=== PATIENT | male | born 1950 | race Caucasian/White ===

== ENCOUNTER 2017-03-22 16:02 | Inpatient (IN) | payer MEDICARE ==
[~2017-03-22] VITALS: Ht 167.6 cm; Wt 151.1 kg
--- NOTE | ~2017-03-22 | CON ---
[place], [place] REPORT OF CONSULTATION NAME: ION ALMANZAR UNIT #: [id number] ROOM: 506 DOCTOR: ROBYN WILKINS MD BIRTHDATE: [birth year] DOS: 03/23/2017 REQUESTING PHYSICIAN: Dr. Dyer. INDICATION: Chest pain. ASSESSMENT: 1. Initial presentation with significant vomiting. 2. Developing chest pain, substernal, dull, aching. It can reach 8/10. No relief with sublingual nitroglycerin. 3. Improved pain with Percocet and Toradol. 4. History of coronary artery disease. Apparently, the patient is status post 8-10 and 9 stents placement. 5. Recent record check, patient had a stent in the RCA with Dr. Magallanes in March of last year. 6. Stress test was negative for ischemia in April of last year. 7. Morbid obesity. 8. Hypertension. 9. Hyperlipidemia. 10. Previous history of heavy tobacco abuse. 11. Early family history of heart disease. PLAN: 1. Cycle cardiac enzymes. 2. Proceed with a walking stress test. 3. Resume Imdur and Brilinta. 4. The patient's heart rate does not tolerate adding beta giovanni at this stage. 5. Consider Ranexa for continued complaint of chest pain. 6. Cardiac catheterization for continued chest pain that is not relieved with medicine. 7. Early followup as an outpatient in our clinic in [place] within 1-2 weeks. 8. Call for any change in symptoms. HISTORY OF PRESENT ILLNESS: The patient is a 67-year-old gentleman well known to our group with Dr. Magallanes. The patient underwent a cardiac catheterization in March of last year with stent placement in RCA. No details available to me at this time. The patient came back with chest pain after that and repeat stress test was negative for ischemia and the patient was treated medically. The patient ran out of medicine due to financial reasons and stopped his Brilinta and his beta giovanni along with Imdur. Two days ago, the patient started having significant vomiting without any prodromal symptoms. No fever, no chills, no night sweats. No abdominal pain, no diarrhea. Following day, the patient started having chest pain that was thought to be due to constant retching. The pain did reach almost 8/10. It was constant until the patient presented to the Emergency Room. Nitroglycerin did not even relieve the pain, but subsequently Percocet did help. The patient did have recurrence of the chest pain after a few hours. Toradol also did help in controlling the pain. Never had any symptomatic palpitation or any associated dizziness, lightheadedness, or near [place], [place] REPORT OF CONSULTATION NAME: ION ALMANZAR UNIT #: [id number] ROOM: [facility] DOCTOR: ROBYN WILKINS MD BIRTHDATE: [birth year] syncope. The patient is still able to go grocery shopping, but no active exercise program. No PND, no orthopnea, stable lower extremity edema. The patient still goes grocery shopping. He has moderately decreased functional capacity due to his body habitus. No fever, no chills, no night sweats. Maintained relatively stable weight. He sleeps on 2 pillows with no reported loud snoring. Never had any symptomatic palpitation or associated dizziness, lightheadedness or near syncope. PAST MEDICAL HISTORY: As detailed in my assessment. SOCIAL HISTORY: The patient denies any current tobacco, alcohol or illicit drug abuse. The patient smoked before that 2-1/2 packs. FAMILY HISTORY: There is significant early family history of heart disease. The patient's father at age 52 of a massive myocardial infarction. One of his brothers also has early heart problems at age 72. CURRENT MEDICATIONS: Vitamin D, aspirin, Lovenox, Protonix, Toradol, Nitrostat, Restoril, Zofran, bisacodyl, and aspirin 324. ALLERGIES: THE PATIENT IS ALLERGIC TO PENICILLIN, CEPHALOSPORINS, IODINE, AND LIDOCAINE. REVIEW OF SYSTEMS: Currently, the patient denies any headache, diplopia or blurry vision. No fever, no chills, no night sweats. No abdominal pain, no bright blood per rectum, no tarry stools. Admits to joint pain and muscular pain. Admits to occasional anxiety, but no depression. No polyuria, no polydipsia. No skin rash. Review of all other systems has been negative. PHYSICAL EXAMINATION: GENERAL: The patient is alert, oriented x 3, quite pleasant. VITAL SIGNS: Blood pressure 150/80, heart rate 68, respiratory rate of 16, temperature 97.8. HEENT: Extraocular muscles intact. Pupils equal, round, and reactive to light. Conjunctivae, no pallor. Throat, no petechiae. NECK: Good carotid upstroke. Unable to appreciate any bruit, no lymphadenopathy, no thyromegaly. HEART: S1, S2 with a significant holosystolic murmur in the left upper sternal border. No rub or sternal heave. Distant heart sounds. CHEST AND BACK: No deformities. LUNGS: Significant decreased air movement, but no yeison wheezing or rales. ABDOMEN: Morbidly obese, soft, nontender. Present bowel sounds. Unable to appreciate any masses or bruit. This is a very limited exam. EXTREMITIES: Lower extremities, significant edema and lymphedema 2 to 3/4 bilateral with inability to palpate distal pulses. NEUROLOGIC: Grossly nonfocal. SKIN: No significant rash. LABORATORY DATA: White count 5.7, hemoglobin is 12.9. Potassium was 3.7, GFR [place], [place] REPORT OF CONSULTATION NAME: ION ALMANZAR UNIT #: [id number] ROOM: [facility] DOCTOR: ROBYN WILKINS MD BIRTHDATE: [birth year] more than 60. Hemoglobin A1c 5.9. Vitamin D 29. Normal thyroid function tests. ROBYN WILKINS MD CM:CONSTR:REPORT OF CONSULTATION [id number] 03/24/17 0054 interface
--- NOTE | ~2017-03-22 | ST ---
[place], [place] EXERCISE STRESS TEST REPORT NAME: ION ALMANZAR UNIT #: [id number] ROOM: 506 DOCTOR: ROBYN WILKINS MD BIRTHDATE: [birth year] DOS: REQUESTING PHYSICIAN: Dr. Katelin Dyer. INDICATION: Chest pain. PROCEDURE: The patient was exercised on a treadmill using Thomas protocol, the patient exercised for 2 minutes and 11 seconds, reaching 86% of his maximum predicted heart rate. Maximum workload was 3 METS. Test was terminated due to severe shortness of breath and chest burning, 05/20. BLOOD PRESSURE RESPONSE: Resting blood pressure 152/78 with ending blood pressure 190/70. ELECTROCARDIOGRAM INTERPRETATION: The resting electrocardiogram showing normal sinus rhythm, heart rate of 84. There is criteria for right bundle branch block and left atrial enlargement. At the peak of the stress test, there was no evidence of any significant ST or T-wave changes suggestive of myocardial ischemia. Frequent unifocal PVCs that were asymptomatic were noticed. SUMMARY: 1. Adequate stress test with severely impaired functional capacity. 2. Possible treadmill stress test for stress induced myocardial ischemia by symptomatology. 3. Hypertensive at rest with normal blood pressure response to exercise. 4. No arrhythmias were noted except for occasional unifocal PVCs that were asymptomatic. 5. No Myoview results were done. RECOMMENDATIONS: 1. Restart aspirin and Plavix. 2. Initiate Lopressor 25 mg. 3. Add Imdur 60 mg. 4. Ranexa 500 mg 1 tablet p.o. b.i.d. 5. Repeat stress test with nuclear as an outpatient. ROBYN WILKINS MD CM:STRESS:EXERCISE STRESS TEST REPORT [id number] ROBYN WILKINS MD
[~2017-03-22 16:02] MED LIST: ANTIVERT25 MG PO; ASPIR-TRIN325 MG PO; ASPIRIN81 M1; ASPIRIN81 M1 PO; ATIVAN1 MG PO; ATORVASTATIN CA80 M1 PO; CIPRO500 MG PO; CIPROFLOXACIN500 MG PO; Duragesic 50 M50 MCG INTRADERM; ENOXAPARIN150 MG/1 M SC; FLEXERIL10 MG PO; FLOMAX0.4 MG PO; HYDROCODONE BIT1 T11 PO; IMDUR30 MG PO; Imdur SA60 MG PO; LISINOPRIL10 MG PO; LOPRESSOR50 MG PO; MEDROL DOSEPAK4 MG PO; NORFLEX100 MG PO; PERCOCET 325 MG1 TA2 PO; PERCOCET 325 MG1 TA7 PO; PREVACID30 M1 PO; PROTONIX40 MG PO; PROZAC40 M1 PO; PROZAC40 MG PO; PYRIDIUM200 MG PO; TAMSULOSIN HYD0.4 MG PO; THE MEDICINE S400 IU PO; VICODIN 5/500 505 MG PO; VITAMIN D400 IU PO; ZOFRAN ODT4 MG SL; ZOFRAN4 MG PO; Zofran4 MG PO
[2017-03-22 16:36] LABS: BASO % 0.5 % (0.0-1.0); EOS # 0.1 10*3/uL (0.0-0.4); EOS % 3.2 % (1.0-4.0); HEMATOCRIT 40.2 % (42.0-52.0); HEMOGLOBIN 13.4 g/dl (14.0-18.0); LYMPH # 1.4 10*3/uL (1.3-4.4); LYMPH % 34.2 % (27.0-41.0); MEAN CELL VOLUME 91.8 fl (80.0-94.0); MEAN CORPUSCULAR HGB 30.6 pg (27.0-31.0); MEAN CORPUSCULAR HGB CONC 33.3 g/dl (33.0-37.0); MEAN PLATELET VOLUME 10.2 fl (9.6-12.3); MONO # 0.7 10*3/uL (0.1-1.0); MONO % 15.8 % (3.0-9.0); NEUT # 1.9 10*3/uL (2.3-7.9); NEUT % 45.3 % (47.0-73.0); PLATELET COUNT AUTOMATED 176 10*3/uL (130-400); RED BLOOD COUNT 4.38 10*6/uL (4.50-5.90); RED CELL DISTRI WIDTH 12.6 % (0-14.5); WHITE BLOOD COUNT 4.1 10*3/uL (4.8-10.8)
[2017-03-22 16:46] LABS: INTERNATIONAL NORM RATIO 0.9 (2.0-3.5)
[2017-03-22 16:54] LABS: ALBUMIN 3.5 gm/dl (3.1-4.5); ALKALINE PHOSPHATASE 70 U/L (45-117); BILIRUBIN, TOTAL 0.6 mg/dl (0.2-1.0); BUN 17 mg/dl (7-24); CARBON DIOXIDE 28 mmol/L (21-32); CHLORIDE 107 mmol/L (98-107); EST GLOM FILT AFRICAN AMERICAN > 60 ml/min; GLUCOSE 104 mg/dL (65-99); POTASSIUM 3.9 mmol/L (3.5-5.1); SGOT/AST 28 IU/L (3-35); SGPT/ALT 36 U/L (12-78); SODIUM 146 mmol/L (136-145); TOTAL PROTEIN 6.8 gm/dL (6.4-8.2); TROPONIN I < 0.015 ng/ml (<0.045)
[2017-03-22 17:51] VITALS: BP 140/69
[2017-03-22 18:46] LABS: CKMB 0.6 ng/ml (0.5-3.6)
[2017-03-22 18:55] VITALS: BP 161/82
[2017-03-22 19:24] VITALS: BP 133/62
[2017-03-22 19:30] VITALS: BP 134/68
[2017-03-22 21:20] VITALS: BP 145/77
[2017-03-22 22:01] LABS: CKMB 0.6 ng/ml (0.5-3.6)
[2017-03-22] MEDS ORDERED: ASPIRIN CHEWABL81 MG PO (23:21)
[2017-03-23] VITALS: BP 149/78
[2017-03-23 00:54] LABS: CPK 55 U/L (39-308)
[2017-03-23 00:55] LABS: CKMB < 0.5 ng/ml (0.5-3.6)
[2017-03-23 06:44] LABS: BASO % 0.5 % (0.0-1.0); EOS # 0.2 10*3/uL (0.0-0.4); EOS % 2.7 % (1.0-4.0); HEMATOCRIT 38.9 % (42.0-52.0); HEMOGLOBIN 12.9 g/dl (14.0-18.0); LYMPH # 1.4 10*3/uL (1.3-4.4); LYMPH % 25.1 % (27.0-41.0); MEAN CELL VOLUME 93.1 fl (80.0-94.0); MEAN CORPUSCULAR HGB 30.9 pg (27.0-31.0); MEAN CORPUSCULAR HGB CONC 33.2 g/dl (33.0-37.0); MEAN PLATELET VOLUME 10.4 fl (9.6-12.3); MONO # 0.7 10*3/uL (0.1-1.0); MONO % 11.9 % (3.0-9.0); NEUT # 3.4 10*3/uL (2.3-7.9); NEUT % 59.3 % (47.0-73.0); PLATELET COUNT AUTOMATED 152 10*3/uL (130-400); RED BLOOD COUNT 4.18 10*6/uL (4.50-5.90); RED CELL DISTRI WIDTH 12.5 % (0-14.5); WHITE BLOOD COUNT 5.7 10*3/uL (4.8-10.8)
[2017-03-23 07:12] LABS: BUN 17 mg/dl (7-24); CARBON DIOXIDE 28 mmol/L (21-32); CHLORIDE 107 mmol/L (98-107); CHOLESTEROL 187 mg/dL (<200); EST GLOM FILT AFRICAN AMERICAN > 60 ml/min; FREE T4 1.04 ng/dl (0.76-1.46); GLUCOSE 88 mg/dL (65-99); HDL CHOLESTEROL 42 mg/dl (40-60); LDL CHOLESTEROL 118 mg/dL (9-159); PHOSPHOROUS 3.5 mg/dL (2.5-4.9); POTASSIUM 3.7 mmol/L (3.5-5.1); SODIUM 142 mmol/L (136-145); TRIGLYCERIDES 137 mg/dl (<150); VLDL CHOLESTEROL 27 mg/dL (6-40)
[2017-03-23 07:13] LABS: HEMOGLOBIN A1c 5.9 % (4.8-5.6)
[2017-03-23 07:32] LABS: FOLIC ACID 9.43 ng/mL (>5.38); VITAMIN D, 25-HYDROXY 29.3 ng/mL (30-100)
[2017-03-23 08:00] VITALS: BP 150/80
[2017-03-23 12:00] VITALS: BP 152/78
[2017-03-23] MEDS ORDERED: D-1000 185 MG-11 TAB PO (13:57)
[2017-03-23] MEDS ORDERED: RANEXA500 M1 PO (13:57)
[2017-03-23] MEDS ORDERED: LOPRESSOR25 MG PO (13:57)
[2017-03-23] MEDS ORDERED: IMDUR SA60 M1 PO (13:57)
[2017-03-23] MEDS ORDERED: CLOPIDOGREL75 MG PO (13:57)
[2017-03-23] MEDS ORDERED: OMEPRAZOLE20 M2 PO (13:57)
[2017-03-23] MEDS ORDERED: ASPIRIN CHEWABL81 MG PO (13:57)
[2017-03-23 16:00] VITALS: BP 154/65
== END 2017-03-23 17:56 | disposition home or self-care (01) | DRG 206 ==
LOC: ED 16:02 → EDHOLD 17:47 → 5E 17:47
PROVIDERS: Emergency Medicine; Student in an Organized Health Care Education/Training Program
PROC: 4A12XM4 Monitoring of Cardiac Stress, External Approach (ICD-10-PCS; principal; 2017-03-22)
DX: M94.0 Chondrocostal junction syndrome [Tietze] (principal); E87.0 Hyperosmolality and hypernatremia; Z68.43 Body mass index [BMI] 50.0-59.9, adult; J44.9 Chronic obstructive pulmonary disease, unspecified; K21.9 Gastro-esophageal reflux disease without esophagitis; I10 Essential (primary) hypertension; E66.01 Morbid (severe) obesity due to excess calories; R19.7 Diarrhea, unspecified; R11.2 Nausea with vomiting, unspecified; D72.819 Decreased white blood cell count, unspecified; D64.9 Anemia, unspecified; E55.9 Vitamin D deficiency, unspecified; Z53.29 Procedure and treatment not carried out because of patient's decision for other reasons; E78.5 Hyperlipidemia, unspecified; Z87.440 Personal history of urinary (tract) infections; Z85.89 Personal history of malignant neoplasm of other organs and systems; Z95.818 Presence of other cardiac implants and grafts; Z90.02 Acquired absence of larynx; I25.2 Old myocardial infarction; Z91.041 Radiographic dye allergy status; Z88.0 Allergy status to penicillin; Z88.1 Allergy status to other antibiotic agents; Z88.4 Allergy status to anesthetic agent; Z88.8 Allergy status to other drugs, medicaments and biological substances; Z91.09 Other allergy status, other than to drugs and biological substances; Z87.891 Personal history of nicotine dependence; Z83.6 Family history of other diseases of the respiratory system; Z82.49 Family history of ischemic heart disease and other diseases of the circulatory system; Z79.82 Long term (current) use of aspirin; Z79.899 Other long term (current) drug therapy

== ENCOUNTER → 2017-03-24 | Outpatient (CLI) | payer MEDICARE ==
[~2017-03-24] MED LIST changes: +ASPIRIN CHEWABL81 MG PO; +CLOPIDOGREL75 MG PO; +D-1000 185 MG-11 TAB PO; +IMDUR SA60 M1 PO; +LOPRESSOR25 MG PO; +OMEPRAZOLE20 M2 PO; +RANEXA500 M1 PO
--- NOTE | ~2017-03-24 | ST ---
[place], [place] EXERCISE STRESS TEST REPORT NAME: ION ALMANZAR UNIT #: [id number] ROOM: DOCTOR: ROBYN WILKINS MD BIRTHDATE: [birth year] DOS: INDICATION: Chest pain. PROCEDURE: The patient was brought into the stress lab. The procedure was explained with risks, benefits, and alternatives. Lexiscan was injected. BLOOD PRESSURE RESPONSE: Resting blood pressure 150/78 with ending blood pressure 140/76. The patient tolerated the procedure well. ELECTROCARDIOGRAM INTERPRETATION: Resting electrocardiogram showing normal sinus rhythm, heart rate of 61 with right bundle-branch block. Following the injection, there was no evidence of any significant ST or T-wave changes suggestive of myocardial ischemia. No arrhythmias were noted. SUMMARY: 1. Adequate Lexiscan stress test. 2. Negative Lexiscan stress test for stress induced myocardial ischemia. 3. No arrhythmias were noted. 4. Nuclear images will be reported separately. ROBYN WILKINS MD CM:STRESS:EXERCISE STRESS TEST REPORT [id number] ROBYN WILKINS MD
== END | disposition home or self-care (01) ==
LOC: CARD 02:23
DX: R07.89 Other chest pain (principal)

== ENCOUNTER 2017-09-27 14:42 | Inpatient (IN) | payer MEDICARE, OTHER ==
[~2017-09-27] VITALS: Ht 167.6 cm; Wt 163.7 kg
[2017-09-27 14:45] VITALS: BP 166/139
--- NOTE | 2017-09-27 15:10 | NUR ---
PT TELLS ME THAT HE TAKES NO MEDS AT HOME AT THIS TIME HE CAN NOT AFFORD THEM
[2017-09-27 15:13] LABS: BASO % 0.5 % (0.0-1.0); EOS # 0.1 10*3/uL (0.0-0.4); EOS % 2.1 % (1.0-4.0); HEMATOCRIT 39.2 % (42.0-52.0); HEMOGLOBIN 13.2 g/dl (14.0-18.0); LYMPH # 1.7 10*3/uL (1.3-4.4); LYMPH % 27.8 % (27.0-41.0); MEAN CELL VOLUME 90.3 fl (80.0-94.0); MEAN CORPUSCULAR HGB 30.4 pg (27.0-31.0); MEAN CORPUSCULAR HGB CONC 33.7 g/dl (33.0-37.0); MEAN PLATELET VOLUME 10.3 fl (9.6-12.3); MONO # 0.8 10*3/uL (0.1-1.0); MONO % 13.6 % (3.0-9.0); NEUT # 3.4 10*3/uL (2.3-7.9); NEUT % 55.2 % (47.0-73.0); PLATELET COUNT AUTOMATED 178 10*3/uL (130-400); RED BLOOD COUNT 4.34 10*6/uL (4.50-5.90); RED CELL DISTRI WIDTH 12.7 % (0-14.5); WHITE BLOOD COUNT 6.1 10*3/uL (4.8-10.8)
[2017-09-27 15:22] LABS: ACT PARTIAL THROMBO TIME 25.2 SECONDS (20.8-31.5); INTERNATIONAL NORM RATIO 0.9 (2.0-3.5)
[2017-09-27 15:30] LABS: ALBUMIN 3.6 gm/dl (3.1-4.5); ALKALINE PHOSPHATASE 94 U/L (45-117); BUN 16 mg/dl (7-24); CHLORIDE 104 mmol/L (98-107); POTASSIUM 3.9 mmol/L (3.5-5.1); SGOT/AST 36 IU/L (3-35); SGPT/ALT 48 U/L (12-78); SODIUM 139 mmol/L (136-145); TOTAL PROTEIN 7.4 gm/dL (6.4-8.2)
[2017-09-27 15:32] LABS: TROPONIN I < 0.015 ng/ml (<0.045)
[2017-09-27 15:40] VITALS: BP 160/88
[2017-09-27 16:34] VITALS: BP 151/84
--- NOTE | 2017-09-27 16:45 | NUR ---
PT AMBULATORY FROM BED IN WICK TO ROOM WITHOUT DIFFICULTY. BELONGINGS SENT WITH PT. ALERT, AND ORIENTED.
[2017-09-27 17:04] VITALS: BP 161/82
--- NOTE | 2017-09-27 17:10 | NUR ---
DR. BATISTA ANSWERING SERVICE NOTIFIED OF CONSULT.
--- NOTE | 2017-09-27 18:00 | NUR ---
SL NITRO GIVEN X3 DOSES WITH NO RELIEF. DR. ARMAS NOTIFIED. NEW ORDER RECIEVED.
[2017-09-27] MEDS ORDERED: LOPRESSOR25 MG PO (18:09)
[2017-09-27] MEDS ORDERED: IMDUR SA60 M1 PO (18:10)
[2017-09-27] MEDS ORDERED: PLAVIX75 M1 PO (18:12)
[2017-09-27] MEDS ORDERED: PRILOSEC20 M1 PO (18:14)
[2017-09-27] MEDS ORDERED: VITAMIN D-32000 UNIT PO (18:14)
[2017-09-27] MEDS ORDERED: ASPIRIN CHEWABL81 MG PO (18:14)
[2017-09-27] MEDS ORDERED: PROZAC20 MG PO (18:19)
--- NOTE | 2017-09-27 18:52 | NUR ---
PT MEDICATED WITH MOPRHINE PER ORDER FOR CHEST PAIN RATED 8/10. WILL MONITIOR
[2017-09-27 20:00] VITALS: BP 138/58
--- NOTE | 2017-09-27 20:00 | NUR ---
ASSUMED CARE OF PATIENT. ASSESSMENT COMPLETE. RESTING IN BED. CALL LIGHT IN REACH. WILL CONTINUE TO MONITOR.
--- NOTE | 2017-09-27 21:05 | NUR ---
PT C/O CHILLS. SHIVERING. PT HAS 7 BLANKETS AND TEMP IN ROOM IS ALL THE WAY UP. PT REQUESTING HEATING PAD. KPAD ORDERED PER DR JOHNSON. PT TEMP 99.1. PRN TYLENOL GIVEN. WILL MONITOR PT CLOSELY.
--- NOTE | 2017-09-27 21:12 | NUR ---
MEDICATED WITH PRN MORPHINE FOR C/O LT CHEST PAIN RADIATING TO NECK. RATES 06/20.
[2017-09-28] VITALS: BP 118/52
--- NOTE | 2017-09-28 00:47 | NUR ---
DR JOHNSON ON FLOOR. MADE HIM AWARE THAT PATIENT HAS BEEN DYSPNIC AND WAS PLACED ON 3L NC. ALSO MADE HIM AWARE THAT PT HAS TEMP AND C/O CHILLS AFTER TYLENOL ADMINISTRATION. NO ORDERS RECEIVED
--- NOTE | 2017-09-28 02:00 | NUR ---
SLEEPING. RESP EASY AND NONLABORED AT THIS TIME. O2 INTACT. CM INTACT. CALL LIGHT IN REACH. WILL CONTINUE TO MONITOR.
--- NOTE | 2017-09-28 05:28 | NUR ---
MEDICATED WITH PRN MORPHINE FOR C/O LT CHEST PAIN AND HEADACHE. RATES 03/20.
[2017-09-28 06:44] LABS: BASO # 0.1 10*3/uL (0.0-0.1); BASO % 0.5 % (0.0-1.0); EOS # 0.2 10*3/uL (0.0-0.4); EOS % 1.5 % (1.0-4.0); HEMATOCRIT 38.1 % (42.0-52.0); LYMPH # 1.1 10*3/uL (1.3-4.4); LYMPH % 8.6 % (27.0-41.0); MEAN CELL VOLUME 90.7 fl (80.0-94.0); MEAN CORPUSCULAR HGB CONC 34.1 g/dl (33.0-37.0); MEAN PLATELET VOLUME 11.3 fl (9.6-12.3); MONO % 7.6 % (3.0-9.0); NEUT # 10.4 10*3/uL (2.3-7.9); NEUT % 81.4 % (47.0-73.0); PLATELET COUNT AUTOMATED 168 10*3/uL (130-400); RED CELL DISTRI WIDTH 12.8 % (0-14.5); WHITE BLOOD COUNT 12.8 10*3/uL (4.8-10.8)
[2017-09-28 07:12] LABS: ALBUMIN 3.4 gm/dl (3.1-4.5); ALKALINE PHOSPHATASE 89 U/L (45-117); BUN 15 mg/dl (7-24); CHLORIDE 104 mmol/L (98-107); CHOLESTEROL 201 mg/dL (<200); CREATININE 1.07 mg/dL (0.70-1.30); HDL CHOLESTEROL 45 mg/dl (40-60); LDL CHOLESTEROL 127 mg/dL (9-159); PHOSPHOROUS 2.9 mg/dL (2.5-4.9); POTASSIUM 3.9 mmol/L (3.5-5.1); SGOT/AST 28 IU/L (3-35); SGPT/ALT 42 U/L (12-78); SODIUM 140 mmol/L (136-145); TRIGLYCERIDES 144 mg/dl (<150); VLDL CHOLESTEROL 29 mg/dL (6-40)
[2017-09-28 07:13] LABS: FREE T4 1.06 ng/dl (0.76-1.46)
[2017-09-28 07:18] LABS: THYROID STIM HORMONE (HS) 0.724 uIU/ml (0.358-4.75)
[2017-09-28 07:40] VITALS: BP 136/54
--- NOTE | 2017-09-28 07:40 | NUR ---
TYLENOL ADMINISTERED FOR PAIN AND FEVER OF 100.8. PT IS LAYING IN BED WAITING TO GO TO STRESS TEST. ERA SHIRLEYNJDRCTiara
--- NOTE | 2017-09-28 08:08 | NUR ---
PT C/O BACK PAIN AND HEADACHE. BACK PAIN 03/20 HEADACHE 05/20. 650 MG OF ACETAMINOPHEN WAS ADMINISTERED. ALSO ADMINISTERED ACETAMINOPHEN FOR A FEVER OF 100.8. PT LAYING IN BED WAITING FOR STRESS TEST. ERA ZENGJDRCiTara
--- NOTE | 2017-09-28 08:30 | NUR ---
Barrel Lathe Operator in to talk to patient. Patient states lives at home with his . There are 4 steps in the home. Physician: no family physician but did see Vasquez Lowe at [facility] for the chest pain Pharmacy: [facility] Home health services: none at present, has used [facility] before Patient's level of ADLs: INDEPENDENT Patient has working utilities: yes DME: none Follow-up physician's appointment after d/c: will be made by hospitalist nurse director upon discharge Does patient want to access PORTAL?: no Discharge plan discussed with patient. He lives at home with his . He works and is independent in his ADLs and ambulation. Discussed with patient about making follow up appointments with the resident clinic; therefore, he can get his medications here at the hospital pharmacy. He states he is unable to pay for his medications and stopped taking his medications in December. Discussed with the patient he can pay page for his medications here at the hospital pharmacy and they are less expensive. Patient agreed to follow up with the resident clinic. When medically stable he will be discharged to home. RIANA SANTAMARIA
[2017-09-28 08:39] LABS: VITAMIN D, 25-HYDROXY 20.8 ng/mL (30-100)
--- NOTE | 2017-09-28 08:59 | NUR ---
PT ESCORTED TO CARDIAC REHAB FOR STRESS TEST.
--- NOTE | 2017-09-28 09:30 | NUR ---
PT IS CURRENTLY OFF FLOOR FOR STRESS TEST. ERA LIN SPNJDRCC
--- NOTE | 2017-09-28 11:45 | NUR ---
INFORMED CONSENT SINGED FOR LEXISCAN STRESS TEST WITH DR. ARMAS. RESTING EKG RBBB, HR 69, BP 132/70. PULSE OX 95% AND BILATERAL INSPIRATORY WHEEZES. COMPLETED ONE MINUTE OF LEXISCAN PROTOCOL RECEIVING LEXISCAN 0.4MG OVER 10 SECONDS. RARE PVC'S AND PAC'S NOTED WITH NO ST CHANGES. PT HAD NO C/O. LAST RECOVERY HR 83, BP 132/60. WAITING NUCLEAR SCANNING IN STABLE CONDITION.
--- NOTE | 2017-09-28 12:00 | NUR ---
REMAINS OFF FLOOR ERA LIN SPNJDRCC
[2017-09-28 16:00] VITALS: BP 72/29
--- NOTE | 2017-09-28 16:45 | NUR ---
PT SITTING UP AT SIDE OF BED EATING DINNER. C/O HEADACHE, RATES PAIN 6 ON PAIN SCALE 0-10. MEDICATED WITH TYLENOL TWO TAB PO PER PRN ORDER, SEE EMAR. CALL LIGHT IN REACH. SEE SHIFT ASSESSMENT.
[2017-09-28 16:49] VITALS: BP 108/54
--- NOTE | 2017-09-28 18:30 | NUR ---
DR. ARMAS ON FLOOR AWARE PT DISCHARGED. NO NEW ORDERS. DRINK A LOT OF FLUIDS.
--- NOTE | 2017-09-28 18:43 | NUR ---
CALLED DR. DYE MADE AWARE PT HAS HEADACHE AND STATE TYLENOL DIDN'T HELP. HE ORDERED SOMETHING.
--- NOTE | 2017-09-28 18:54 | NUR ---
PT MEDICATED WITH FIORICET ONE TAB PO PER PRN ORDER FOR HEADACHE, RATES PAIN 8 ON PAIN SCALE. SEE EMAR. CALL LIGHT IN REACH.
[2017-09-28 20:00] VITALS: BP 97/34
--- NOTE | 2017-09-28 20:00 | NUR ---
PT STATES MEDICATION FOR HEADACHE EFFECTIVE.
--- NOTE | 2017-09-28 20:46 | NUR ---
PT HAD C/O HEADACHE, NURSE WAS TOLD BY PA. UPON ASSESSMENT OF PT'S PAIN LEVEL PT WAS FOUND TO BE SLEEPING AND WAS NOT AWAKENED. RESPIRATIONS EASY, NC IN PLACE. CALL LIGHT WITHIN REACH
--- NOTE | 2017-09-28 21:48 | NUR ---
PATIENT AT THIS TIME LEAVING AMA. STATED THAT HIS FELL AT HOME AND SHE IS UNABLE TO GET UP AND THAT HE NEEDS TO GO HOME AND MAKE SURE SHE IS OK. IV HEP LOCK REMOVED FROM HAND, MEDIPORT ACCESS REMOVED. HEART MONITOR REMOVED. DR. CELESTE AND HYACINTH BRUNO, MORIS NOTIFIED
[2017-10-05 16:09] LABS: ORGANISM ID Final report (.)
== END 2017-09-28 21:48 | disposition left against medical advice (07) | DRG 313 ==
LOC: ED 14:42 → 4E 16:15 → EDHOLD 16:15 → 4E 16:19
PROVIDERS: Emergency Medicine; Internal Medicine; Student in an Organized Health Care Education/Training Program; ADMIT Emergency Medicine
PROC: 3E073KZ Introduction of Other Diagnostic Substance into Coronary Artery, Percutaneous Approach (ICD-10-PCS; principal; 2017-09-28)
PROC: 4A02XM4 Measurement of Cardiac Total Activity, External Approach (ICD-10-PCS; principal; 2017-09-28)
DX: R07.9 Chest pain, unspecified (principal); I25.119 Atherosclerotic heart disease of native coronary artery with unspecified angina pectoris; J44.9 Chronic obstructive pulmonary disease, unspecified; R65.10 Systemic inflammatory response syndrome (SIRS) of non-infectious origin without acute organ dysfunction; E66.01 Morbid (severe) obesity due to excess calories; Z68.43 Body mass index [BMI] 50.0-59.9, adult; D64.9 Anemia, unspecified; E78.00 Pure hypercholesterolemia, unspecified; K21.9 Gastro-esophageal reflux disease without esophagitis; I10 Essential (primary) hypertension; F32.9 Major depressive disorder, single episode, unspecified; R91.8 Other nonspecific abnormal finding of lung field; F41.9 Anxiety disorder, unspecified; E55.9 Vitamin D deficiency, unspecified; Z53.21 Procedure and treatment not carried out due to patient leaving prior to being seen by health care provider; Z95.5 Presence of coronary angioplasty implant and graft; Z88.1 Allergy status to other antibiotic agents; Z88.6 Allergy status to analgesic agent; Z88.8 Allergy status to other drugs, medicaments and biological substances; Z88.0 Allergy status to penicillin; Z91.041 Radiographic dye allergy status; Z79.899 Other long term (current) drug therapy; Z79.82 Long term (current) use of aspirin; Z90.02 Acquired absence of larynx; Z87.891 Personal history of nicotine dependence; Z82.5 Family history of asthma and other chronic lower respiratory diseases; Z82.49 Family history of ischemic heart disease and other diseases of the circulatory system; I25.2 Old myocardial infarction; Z87.442 Personal history of urinary calculi; Z85.21 Personal history of malignant neoplasm of larynx

== ENCOUNTER → 2017-09-29 | Outpatient (CLI) | payer MEDICARE, OTHER ==
[~2017-09-29] MED LIST changes: +PLAVIX75 M1 PO; +PRILOSEC20 M1 PO; +PROZAC20 MG PO; +VITAMIN D-32000 UNIT PO
== END | disposition home or self-care (01) ==
LOC: RESCLI 09:54
DX: I11.0 Hypertensive heart disease with heart failure (principal); I50.32 Chronic diastolic (congestive) heart failure; N40.0 Benign prostatic hyperplasia without lower urinary tract symptoms; J44.9 Chronic obstructive pulmonary disease, unspecified; I25.10 Atherosclerotic heart disease of native coronary artery without angina pectoris; F32.9 Major depressive disorder, single episode, unspecified; I45.10 Unspecified right bundle-branch block; R91.8 Other nonspecific abnormal finding of lung field; E55.9 Vitamin D deficiency, unspecified; E53.8 Deficiency of other specified B group vitamins; Z68.42 Body mass index [BMI] 45.0-49.9, adult; Z85.818 Personal history of malignant neoplasm of other sites of lip, oral cavity, and pharynx; Z88.0 Allergy status to penicillin

== ENCOUNTER → 2017-11-01 | Outpatient (CLI) | payer MEDICARE, OTHER | END | disposition home or self-care (01) | LOC: RESCLI 02:14 | DX: J43.9 Emphysema, unspecified (principal); I11.0 Hypertensive heart disease with heart failure; I50.32 Chronic diastolic (congestive) heart failure; E55.9 Vitamin D deficiency, unspecified; I25.10 Atherosclerotic heart disease of native coronary artery without angina pectoris; E53.8 Deficiency of other specified B group vitamins; N40.0 Benign prostatic hyperplasia without lower urinary tract symptoms; F32.9 Major depressive disorder, single episode, unspecified; R91.8 Other nonspecific abnormal finding of lung field; Z68.42 Body mass index [BMI] 45.0-49.9, adult; Z91.041 Radiographic dye allergy status; Z88.0 Allergy status to penicillin; Z88.6 Allergy status to analgesic agent ==

== ENCOUNTER → 2018-01-25 | Outpatient (CLI) | payer MEDICARE | END | disposition home or self-care (01) | LOC: CT 10:37 | DX: R91.1 Solitary pulmonary nodule (principal) ==

== ENCOUNTER → 2018-02-01 | Outpatient (CLI) | payer MEDICARE | END | disposition home or self-care (01) | LOC: RESCLI 04:13 | DX: I11.0 Hypertensive heart disease with heart failure (principal); I50.32 Chronic diastolic (congestive) heart failure; J43.9 Emphysema, unspecified; E55.9 Vitamin D deficiency, unspecified; I25.10 Atherosclerotic heart disease of native coronary artery without angina pectoris; E53.8 Deficiency of other specified B group vitamins; I45.10 Unspecified right bundle-branch block; N40.0 Benign prostatic hyperplasia without lower urinary tract symptoms; F32.9 Major depressive disorder, single episode, unspecified; R91.8 Other nonspecific abnormal finding of lung field; Z87.891 Personal history of nicotine dependence; Z88.0 Allergy status to penicillin ==

== ENCOUNTER 2018-09-20 00:12 | Emergency (ER) | payer MEDICARE ==
[~2018-09-20] VITALS: Ht 175.2 cm; Wt 136.1 kg
--- NOTE | ~2018-09-20 | EKG ---
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
[2018-09-20] MEDS ORDERED: TOPROL XL25 MG PO (00:16)
[2018-09-20] MEDS ORDERED: NATURE'S BLEND F1 MG PO (00:16)
[2018-09-20] MEDS ORDERED: PLAVIX75 M1 PO (00:17)
[2018-09-20] MEDS ORDERED: HYDROCHLOROTHIA25 M1 PO (00:17)
[2018-09-20] MEDS ORDERED: FLUOXETINE HYDR20 M1 PO (00:18)
[2018-09-20] MEDS ORDERED: FLOMAX0.4 MG PO (00:18)
[2018-09-20 00:59] LABS: BASO # 0.1 10*3/uL (0.0-0.1); BASO % 0.8 % (0.0-1.0); EOS # 0.1 10*3/uL (0.0-0.4); EOS % 2.3 % (1.0-4.0); HEMATOCRIT 43.1 % (42.0-52.0); HEMOGLOBIN 14.3 g/dl (14.0-18.0); LYMPH # 2.2 10*3/uL (1.3-4.4); MEAN CELL VOLUME 93.1 fl (80.0-94.0); MEAN CORPUSCULAR HGB 30.9 pg (27.0-31.0); MEAN CORPUSCULAR HGB CONC 33.2 g/dl (33.0-37.0); MEAN PLATELET VOLUME 10.1 fl (9.6-12.3); MONO # 0.8 10*3/uL (0.1-1.0); MONO % 12.7 % (3.0-9.0); NEUT # 2.9 10*3/uL (2.3-7.9); NEUT % 47.5 % (47.0-73.0); PLATELET COUNT AUTOMATED 214 10*3/uL (130-400); RED BLOOD COUNT 4.63 10*6/uL (4.50-5.90); RED CELL DISTRI WIDTH 12.9 % (0-14.5)
[2018-09-20 01:17] LABS: ACT PARTIAL THROMBO TIME 24.5 SECONDS (20.8-31.5); INTERNATIONAL NORM RATIO 0.9 (2.0-3.5)
[2018-09-20 01:23] LABS: ALBUMIN 3.7 gm/dl (3.1-4.5); ALKALINE PHOSPHATASE 89 U/L (45-117); BUN 16 mg/dl (7-24); CHLORIDE 105 mmol/L (98-107); CREATININE 1.09 mg/dL (0.70-1.30); POTASSIUM 3.8 mmol/L (3.5-5.1); SGOT/AST 22 IU/L (3-35); SGPT/ALT 28 U/L (12-78); SODIUM 138 mmol/L (136-145); TOTAL PROTEIN 7.6 gm/dL (6.4-8.2)
[2018-09-20 01:26] LABS: TROPONIN I < 0.015 ng/ml (<0.045)
== END 2018-09-20 01:40 | disposition left against medical advice (07) ==
LOC: ED
PROVIDERS: Student in an Organized Health Care Education/Training Program
DX: R07.9 Chest pain, unspecified (principal); R06.02 Shortness of breath; R42 Dizziness and giddiness; R51 Headache; R05 Cough; Z88.1 Allergy status to other antibiotic agents; Z91.041 Radiographic dye allergy status; Z88.0 Allergy status to penicillin; Z88.6 Allergy status to analgesic agent; Z88.4 Allergy status to anesthetic agent; Z79.899 Other long term (current) drug therapy; Z79.82 Long term (current) use of aspirin; Z98.890 Other specified postprocedural states; Z87.891 Personal history of nicotine dependence

== ENCOUNTER → 2018-10-07 | Outpatient (CLI) | payer MEDICARE ==
[~2018-10-07] MED LIST changes: +CUBICIN RF500 MG IV; +FLONASE ALLERG9.9 ML NAS; +FLUOXETINE HYDR20 M1 PO; +HYDROCHLOROTHIA25 M1 PO; +LEVOFLOXACIN500 MG PO; +METOPROLOL25 MG PO; +NATURE'S BLEND F1 MG PO; +PREDNISONE10 MG PO; +PROAIR HFA8.5 GM INH; +TOPROL XL25 MG PO; +VITAMIN D50000 UNIT PO; +ZITHROMAX500 MG PO; +ZYRTEC10 MG PO
== END | disposition home or self-care (01) ==
LOC: RESCLI 03:56
DX: I11.0 Hypertensive heart disease with heart failure (principal); I50.32 Chronic diastolic (congestive) heart failure; J43.9 Emphysema, unspecified; E55.9 Vitamin D deficiency, unspecified; I25.10 Atherosclerotic heart disease of native coronary artery without angina pectoris; E53.8 Deficiency of other specified B group vitamins; N40.0 Benign prostatic hyperplasia without lower urinary tract symptoms; F32.9 Major depressive disorder, single episode, unspecified; R91.8 Other nonspecific abnormal finding of lung field; J32.9 Chronic sinusitis, unspecified; R07.9 Chest pain, unspecified; E66.01 Morbid (severe) obesity due to excess calories; T82.41XA Breakdown (mechanical) of vascular dialysis catheter, initial encounter; Z79.899 Other long term (current) drug therapy; Z68.42 Body mass index [BMI] 45.0-49.9, adult; Z88.0 Allergy status to penicillin; Z91.041 Radiographic dye allergy status; Z88.8 Allergy status to other drugs, medicaments and biological substances

== ENCOUNTER → 2018-10-18 | Outpatient (CLI) | payer OTHER ==
[~2018-10-18] MED LIST changes: +DOXYCYCLINE100 M3 PO
--- NOTE | 2018-10-18 11:45 | NUR ---
INFORMED CONSENT OBTAINED FOR LEXISCAN NUCLEAR STRESS TEST WITH DR. RODRIGUEZ. RESTING EKG RBBB WITH A RESTING HR OF 57 WITH BP 110/70. LUNGS CLEAR WITH SPO2 OF 96% ON ROOM AIR. PT COMPLETED A 1:00 LEXISCAN PROTOCOL RECEIVING LEXISCAN 0.4 MG IV OVER 10 SECONDS. HAD NO CHEST PAIN OR ANY EKG CHANGES. HAD A PEAK OF 72 WITH BP OF 98/64. LAST RECOVERY HR OF 68 WITH BP OF 102/70. AWAITING SCANNING IN STABLE CONDITION.
== END | disposition home or self-care (01) ==
DX: R07.9 Chest pain, unspecified (principal)

== ENCOUNTER → 2018-10-24 | Outpatient (CLI) | payer OTHER ==
[~2018-10-24] MED LIST changes: -DOXYCYCLINE100 M3 PO
== END | disposition home or self-care (01) ==
LOC: CT 10-19 11:00
DX: R91.1 Solitary pulmonary nodule (principal); I25.10 Atherosclerotic heart disease of native coronary artery without angina pectoris

== ENCOUNTER → 2018-11-04 | Outpatient (CLI) | payer OTHER | END | disposition home or self-care (01) | LOC: RAD 11:10 | DX: J44.9 Chronic obstructive pulmonary disease, unspecified (principal); I10 Essential (primary) hypertension; I25.10 Atherosclerotic heart disease of native coronary artery without angina pectoris; Z87.891 Personal history of nicotine dependence ==

== ENCOUNTER 2018-11-15 13:59 | Inpatient (IN) | payer OTHER ==
[~2018-11-15] VITALS: Ht 167.6 cm; Wt 149.8 kg
--- NOTE | ~2018-11-15 | EKG ---
[place], [place] ELECTROCARDIOGRAM REPORT NAME: ION ALMANZAR UNIT #: [id number] ROOM: 402 DOCTOR: MADI DRAFT REPORT BIRTHDATE: [birth year] [facility] Test Date: 2018-11-15 Test Time: 14:09:02 Pat Name: ION ALMANZAR Department: Room: 402 Gender: M Credit Card Clerk: : 1950 Requested By: ELENI BENITEZ Order Number: [id number] Reading MD: Kris Rodriguez MD Measurements Intervals [place] Rate: 86 P: 65 VT: 154 QRS: 48 QRSD: 144 T: 11 QT: 415 QTc: 497 Interpretive Statements Sinus rhythm Atrial premature complex Right bundle branch block Compared to ECG 09/20/2018 00:19:02 Atrial premature complex(es) now present Electronically Signed On 11-17-2018 7:34:41 PST by Kris Rodriguez MD CM:EKGRPT:ELECTROCARDIOGRAM REPORT [id number] ELENI BARRAZA DRAFT REPORT ELENI BENITEZ MD
--- NOTE | ~2018-11-15 | CON ---
[place], [place] REPORT OF CONSULTATION NAME: ION ALMANZAR UNIT #: [id number] ROOM: 402 DOCTOR: PHD JOHNNY CASASHERINE BIRTHDATE: [birth year] DOS: 11/16/2018 HISTORY OF PRESENT ILLNESS: The patient is a 68-year-old male referred by Zina Ny for counseling. 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 At the present time, the patient is on the 4th floor at [facility]. 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 He denied alcohol, tobacco and illegal drug use. This is his second marriage and he has been for 46 years. PAST MEDICAL HISTORY: Anxiety, chest pain, COPD, coronary artery disease, depression, GERD, hypertension, hyperlipidemia, leukocytosis, nephrolithiasis, normocytic anemia, obesity, pulmonary nodules, SIRS, STEMI, tachypnea, throat cancer, vitamin D deficiency. MEDICATIONS: Vitamin D, Zyrtec, Flomax, Prozac, Esidrix, folic acid, aspirin, Plavix, Lovenox, Robitussin-DM, Lopressor, DuoNeb, Zofran, Tylenol, Rocephin, Zithromax. The patient was lying comfortably in bed, in no apparent distress. He was awake, alert and oriented. Eye contact and social skills were appropriate. He was pleasant and cooperative with the evaluation. Mood was depressed and affect was restricted in range. He denied suicidal and homicidal ideation, plan and intent. He states that he struggles seeing his in the mcc with her dementia, which includes symptoms of hallucinations, delusions and personality changes. He is struggling to adjust to this and feels guilty whenever he does something pleasant for himself. Speech and language were within normal limits conversationally. Thought process was linear and goal directed. There was no evidence of hallucinations or delusions. Insight and judgment appeared appropriate. Discussed caregiver burnout and ways to take care of himself as well as his . Provided the patient with information on support groups locally for caregivers. He denied a need for individual counseling at this time. DIAGNOSIS: Adjustment disorder with depressed mood. RECOMMENDATIONS: The patient would benefit from attending a support group for caregivers of people with dementia. He was provided with information on how and where to attend these groups. Individual counseling was recommended, but he declined. I will continue to follow with the patient as needed. Thank you very much for this consult. [place], [place] REPORT OF CONSULTATION NAME: ION ALMANZAR UNIT #: [id number] ROOM: [facility] DOCTOR: MARCY, PHD SIMONA BIRTHDATE: [birth year] Aleida Casas, PhD CM:CONSTR:REPORT OF CONSULTATION 1738 11/17/18 0735 interface
[~2018-11-15 13:59] MED LIST changes: -CUBICIN RF500 MG IV; -FLONASE ALLERG9.9 ML NAS; -LEVOFLOXACIN500 MG PO; -PREDNISONE10 MG PO; -PROAIR HFA8.5 GM INH; -VITAMIN D50000 UNIT PO; -ZITHROMAX500 MG PO; -ZYRTEC10 MG PO
[2018-11-15 15:18] LABS: HEMATOCRIT 43.9 % (42.0-52.0); HEMOGLOBIN 14.2 g/dl (14.0-18.0); MEAN CELL VOLUME 93.4 fl (80.0-94.0); MEAN CORPUSCULAR HGB 30.2 pg (27.0-31.0); MEAN CORPUSCULAR HGB CONC 32.3 g/dl (33.0-37.0); MEAN PLATELET VOLUME 10.2 fl (9.6-12.3); PLATELET COUNT AUTOMATED 209 10*3/uL (130-400); RED CELL DISTRI WIDTH 12.8 % (0-14.5); WHITE BLOOD COUNT 5.3 10*3/uL (4.8-10.8)
[2018-11-15 15:22] VITALS: BP 139/78
[2018-11-15 15:26] LABS: ACT PARTIAL THROMBO TIME 37.3 SECONDS (20.8-31.5); INTERNATIONAL NORM RATIO 0.9 (2.0-3.5)
[2018-11-15 15:36] LABS: ALBUMIN 3.7 gm/dl (3.1-4.5); ALKALINE PHOSPHATASE 86 U/L (45-117); BUN 20 mg/dl (7-24); CHLORIDE 102 mmol/L (98-107); CREATININE 1.07 mg/dL (0.70-1.30); POTASSIUM 3.6 mmol/L (3.5-5.1); SGOT/AST 22 IU/L (3-35); SGPT/ALT 28 U/L (12-78); SODIUM 139 mmol/L (136-145); TOTAL PROTEIN 7.9 gm/dL (6.4-8.2)
[2018-11-15 15:40] LABS: ATYPICAL LYMPHS 5 % (0-0); BASOPHILS 1 % (0-1); PLATELET SUFFICIENCY NORMAL (NORMAL); TOTAL CELLS COUNTED 100 #CELLS
[2018-11-15 15:48] LABS: TROPONIN I < 0.015 ng/ml (<0.045)
[2018-11-15 17:45] VITALS: BP 137/91
[2018-11-15] MEDS ORDERED: ZYRTEC10 MG PO (17:46)
[2018-11-15] MEDS ORDERED: PROAIR HFA8.5 GM INH (17:47)
[2018-11-15] MEDS ORDERED: FLONASE ALLERG9.9 ML NAS (17:47)
[2018-11-15] MEDS ORDERED: VITAMIN D50000 UNIT PO (17:47)
[2018-11-15 20:00] VITALS: BP 136/74
[2018-11-16] VITALS: BP 118/61
[2018-11-16 06:23] LABS: HEMATOCRIT 41.9 % (42.0-52.0); HEMOGLOBIN 13.8 g/dl (14.0-18.0); MEAN CELL VOLUME 92.9 fl (80.0-94.0); MEAN CORPUSCULAR HGB 30.6 pg (27.0-31.0); MEAN CORPUSCULAR HGB CONC 32.9 g/dl (33.0-37.0); MEAN PLATELET VOLUME 10.6 fl (9.6-12.3); PLATELET COUNT AUTOMATED 206 10*3/uL (130-400); RED BLOOD COUNT 4.51 10*6/uL (4.50-5.90); RED CELL DISTRI WIDTH 12.6 % (0-14.5); WHITE BLOOD COUNT 4.9 10*3/uL (4.8-10.8)
[2018-11-16 06:39] LABS: ALBUMIN 3.4 gm/dl (3.1-4.5); ALKALINE PHOSPHATASE 84 U/L (45-117); BUN 21 mg/dl (7-24); CHLORIDE 101 mmol/L (98-107); CHOLESTEROL 220 mg/dL (<200); CREATININE 1.02 mg/dL (0.70-1.30); FREE T4 1.16 ng/dl (0.76-1.46); HDL CHOLESTEROL 45 mg/dl (40-60); LDL CHOLESTEROL 153 mg/dL (9-159); PHOSPHOROUS 3.2 mg/dL (2.5-4.9); POTASSIUM 3.7 mmol/L (3.5-5.1); SGOT/AST 20 IU/L (3-35); SGPT/ALT 25 U/L (12-78); SODIUM 139 mmol/L (136-145); TOTAL PROTEIN 7.5 gm/dL (6.4-8.2); TRIGLYCERIDES 110 mg/dl (<150); VLDL CHOLESTEROL 22 mg/dL (6-40)
[2018-11-16 06:44] LABS: THYROID STIM HORMONE (HS) 0.411 uIU/ml (0.358-4.75)
[2018-11-16 07:01] LABS: ATYPICAL LYMPHS 3 % (0-0); PLATELET SUFFICIENCY NORMAL (NORMAL); TOTAL CELLS COUNTED 100 #CELLS
[2018-11-16 08:00] VITALS: BP 138/74
[2018-11-16 12:00] VITALS: BP 140/98; BP 145/122
[2018-11-16 16:00] VITALS: BP 141/59
[2018-11-16 20:00] VITALS: BP 132/71
[2018-11-17] VITALS: BP 121/65
[2018-11-17 08:00] VITALS: BP 129/66
[2018-11-17 12:00] VITALS: BP 118/54
[2018-11-17 16:00] VITALS: BP 118/57
[2018-11-17 20:00] VITALS: BP 111/56
[2018-11-18] VITALS: BP 132/60
[2018-11-18 06:13] LABS: BASO % 0.1 % (0.0-1.0); HEMATOCRIT 41.7 % (42.0-52.0); HEMOGLOBIN 13.7 g/dl (14.0-18.0); LYMPH # 1.2 10*3/uL (1.3-4.4); LYMPH % 12.3 % (27.0-41.0); MEAN CELL VOLUME 93.3 fl (80.0-94.0); MEAN CORPUSCULAR HGB 30.6 pg (27.0-31.0); MEAN CORPUSCULAR HGB CONC 32.9 g/dl (33.0-37.0); MEAN PLATELET VOLUME 10.4 fl (9.6-12.3); MONO # 0.6 10*3/uL (0.1-1.0); MONO % 6.8 % (3.0-9.0); NEUT # 7.5 10*3/uL (2.3-7.9); NEUT % 79.5 % (47.0-73.0); PLATELET COUNT AUTOMATED 223 10*3/uL (130-400); RED BLOOD COUNT 4.47 10*6/uL (4.50-5.90); RED CELL DISTRI WIDTH 12.5 % (0-14.5); WHITE BLOOD COUNT 9.5 10*3/uL (4.8-10.8)
[2018-11-18 06:20] LABS: BUN 26 mg/dl (7-24); CHLORIDE 100 mmol/L (98-107); CREATININE 1.03 mg/dL (0.70-1.30); SODIUM 139 mmol/L (136-145)
[2018-11-18 07:23] VITALS: BP 128/56
[2018-11-18 11:22] VITALS: BP 133/64
[2018-11-18 12:00] VITALS: BP 124/55
[2018-11-18] MEDS ORDERED: ZITHROMAX500 MG PO (14:27)
[2018-11-18] MEDS ORDERED: CUBICIN RF500 MG IV (14:27)
[2018-11-18] MEDS ORDERED: PREDNISONE10 MG PO (14:28)
[2018-11-18] MEDS ORDERED: LEVOFLOXACIN500 MG PO (14:51)
== END 2018-11-18 14:59 | disposition home or self-care (01) | DRG 871 ==
LOC: ED 13:59 → 4E 16:18 → EDHOLD 16:18 → 4E 16:54
PROVIDERS: Emergency Medicine; Internal Medicine; Registered Nurse; ADMIT Internal Medicine
DX: A41.9 Sepsis, unspecified organism (principal); J96.01 Acute respiratory failure with hypoxia; J44.1 Chronic obstructive pulmonary disease with (acute) exacerbation; E44.0 Moderate protein-calorie malnutrition; Z68.43 Body mass index [BMI] 50.0-59.9, adult; F32.9 Major depressive disorder, single episode, unspecified; I10 Essential (primary) hypertension; K21.9 Gastro-esophageal reflux disease without esophagitis; I25.10 Atherosclerotic heart disease of native coronary artery without angina pectoris; E78.5 Hyperlipidemia, unspecified; F41.9 Anxiety disorder, unspecified; F43.21 Adjustment disorder with depressed mood; N40.0 Benign prostatic hyperplasia without lower urinary tract symptoms; E66.01 Morbid (severe) obesity due to excess calories; Z88.0 Allergy status to penicillin; Z88.6 Allergy status to analgesic agent; Z88.1 Allergy status to other antibiotic agents; I25.2 Old myocardial infarction; Z85.850 Personal history of malignant neoplasm of thyroid; Z95.5 Presence of coronary angioplasty implant and graft; Z87.891 Personal history of nicotine dependence; Z82.5 Family history of asthma and other chronic lower respiratory diseases; Z82.49 Family history of ischemic heart disease and other diseases of the circulatory system; Z79.82 Long term (current) use of aspirin; Z79.899 Other long term (current) drug therapy; Z79.02 Long term (current) use of antithrombotics/antiplatelets

== ENCOUNTER → 2018-12-02 | Outpatient (CLI) | payer OTHER ==
[~2018-12-02] MED LIST changes: +CUBICIN RF500 MG IV; +DOXYCYCLINE100 M3 PO; +FLONASE ALLERG9.9 ML NAS; +LEVOFLOXACIN500 MG PO; +PREDNISONE10 MG PO; +PROAIR HFA8.5 GM INH; +VITAMIN D50000 UNIT PO; +ZITHROMAX500 MG PO; +ZYRTEC10 MG PO
--- NOTE | 2018-12-02 11:58 | NUR ---
CLIENT AMBULATORY TO TREATMENT AREA FOR BLOOD CULTURE DRAW VIA PORT. PORT WAS PREPPED AND ACCESSED USING ASEPTIC TECHNIQUE. BRISK BLOOD RETURN WAS NOTED. 10ML BLOOD WAS WASTED THEN SPECIMEN WAS OBTAINED AND GIVEN TO LAB PERSONNEL. PORT WAS FLUSHED WITH SALINE FOLLOWED BY HEPARIN. NEEDLE WAS WITHDRAWN AND A BANDAID WAS APPLIED TO SITE. NO BANDAID WAS SEEN. CLIENT THEN LEFT TREATMENT AREA IN STABLE CONDITION
== END | disposition home or self-care (01) ==
LOC: LAB 11:28
DX: R50.9 Fever, unspecified (principal)

== ENCOUNTER 2019-03-30 20:07 | Emergency (ER) | payer OTHER ==
[~2019-03-30] VITALS: Ht 167.6 cm; Wt 152.9 kg
[~2019-03-30 20:07] MED LIST changes: -DOXYCYCLINE100 M3 PO
[2019-03-30 21:37] LABS: BASO # 0.1 10*3/uL (0.0-0.1); BASO % 0.8 % (0.0-1.0); EOS # 0.2 10*3/uL (0.0-0.4); EOS % 2.3 % (1.0-4.0); HEMATOCRIT 41.1 % (42.0-52.0); HEMOGLOBIN 13.5 g/dl (14.0-18.0); LYMPH # 1.6 10*3/uL (1.3-4.4); LYMPH % 23.9 % (27.0-41.0); MEAN CELL VOLUME 94.1 fl (80.0-94.0); MEAN CORPUSCULAR HGB 30.9 pg (27.0-31.0); MEAN CORPUSCULAR HGB CONC 32.8 g/dl (33.0-37.0); MEAN PLATELET VOLUME 10.7 fl (9.6-12.3); MONO % 15.1 % (3.0-9.0); NEUT # 3.8 10*3/uL (2.3-7.9); NEUT % 57.3 % (47.0-73.0); PLATELET COUNT AUTOMATED 218 10*3/uL (130-400); RED BLOOD COUNT 4.37 10*6/uL (4.50-5.90); WHITE BLOOD COUNT 6.6 10*3/uL (4.8-10.8)
[2019-03-30 21:54] LABS: ALBUMIN 3.6 gm/dl (3.1-4.5); ALKALINE PHOSPHATASE 93 U/L (45-117); BUN 20 mg/dl (7-24); CHLORIDE 109 mmol/L (98-107); CREATININE 1.19 mg/dL (0.70-1.30); SGOT/AST 22 IU/L (3-35); SGPT/ALT 26 U/L (12-78); SODIUM 142 mmol/L (136-145); TOTAL PROTEIN 7.3 gm/dL (6.4-8.2)
[2019-03-30] MEDS ORDERED: DOXYCYCLINE100 M3 PO (21:59)
== END 2019-03-30 23:28 | disposition home or self-care (01) ==
LOC: ED 20:07
PROVIDERS: Nurse Practitioner Family
DX: I82.411 Acute embolism and thrombosis of right femoral vein (principal); J06.9 Acute upper respiratory infection, unspecified; J32.9 Chronic sinusitis, unspecified; J02.9 Acute pharyngitis, unspecified; R23.4 Changes in skin texture; J44.9 Chronic obstructive pulmonary disease, unspecified; K21.9 Gastro-esophageal reflux disease without esophagitis; I10 Essential (primary) hypertension; E78.5 Hyperlipidemia, unspecified; I25.10 Atherosclerotic heart disease of native coronary artery without angina pectoris; E66.9 Obesity, unspecified; Z87.891 Personal history of nicotine dependence; Z88.0 Allergy status to penicillin; Z88.1 Allergy status to other antibiotic agents; Z88.6 Allergy status to analgesic agent; Z88.4 Allergy status to anesthetic agent; Z79.899 Other long term (current) drug therapy; Z79.82 Long term (current) use of aspirin

== ENCOUNTER → 2019-04-07 | Outpatient (CLI) | payer OTHER ==
[~2019-04-07] MED LIST changes: +DOXYCYCLINE100 M3 PO
--- NOTE | 2019-04-07 11:35 | NUR ---
1130[facility] AFTER CLEANSING WITH CHLORAPREP X2 BY UNIQUE LAWRENCE RN WITHOUT SUCCESS. BLOOD RETURN OBTAINED BY CARMINA MORENO RN ON SECOND ATTEMPT. LAB TUBES FILLED AND SENT TO LAB VIA TUBE TRANSPORT SYSTEM. FLUSHED PER POLICY AND NON-CORING NEEDLE WITHDRAWN INTACT. BANDAID TO SITE.
[2019-04-07 12:03] LABS: BASO % 0.6 % (0.0-1.0); EOS # 0.1 10*3/uL (0.0-0.4); EOS % 2.5 % (1.0-4.0); HEMATOCRIT 43.7 % (42.0-52.0); HEMOGLOBIN 14.2 g/dl (14.0-18.0); LYMPH # 1.6 10*3/uL (1.3-4.4); LYMPH % 29.9 % (27.0-41.0); MEAN CELL VOLUME 93.6 fl (80.0-94.0); MEAN CORPUSCULAR HGB 30.4 pg (27.0-31.0); MEAN CORPUSCULAR HGB CONC 32.5 g/dl (33.0-37.0); MEAN PLATELET VOLUME 10.8 fl (9.6-12.3); MONO # 0.7 10*3/uL (0.1-1.0); MONO % 13.3 % (3.0-9.0); NEUT # 2.7 10*3/uL (2.3-7.9); NEUT % 52.7 % (47.0-73.0); PLATELET COUNT AUTOMATED 241 10*3/uL (130-400); RED BLOOD COUNT 4.67 10*6/uL (4.50-5.90); RED CELL DISTRI WIDTH 11.9 % (0-14.5); WHITE BLOOD COUNT 5.2 10*3/uL (4.8-10.8)
[2019-04-07 12:30] LABS: ALKALINE PHOSPHATASE 89 U/L (45-117); BUN 22 mg/dl (7-24); CHLORIDE 102 mmol/L (98-107); CREATININE 1.15 mg/dL (0.70-1.30); POTASSIUM 3.9 mmol/L (3.5-5.1); SGOT/AST 20 IU/L (3-35); SGPT/ALT 25 U/L (12-78); SODIUM 140 mmol/L (136-145); TOTAL PROTEIN 7.3 gm/dL (6.4-8.2)
== END | disposition home or self-care (01) ==
LOC: LAB 10:52
PROVIDERS: Nurse Practitioner Family
DX: I82.411 Acute embolism and thrombosis of right femoral vein (principal); R60.0 Localized edema; Z79.01 Long term (current) use of anticoagulants

== ENCOUNTER → 2019-11-07 | Outpatient (CLI) | payer OTHER ==
--- NOTE | 2019-11-07 09:49 | NUR ---
[address] ACCESSED BY CARMINA MORENO RN AFTER CLEANSING WITH CHLORAPREP. TUBES SUPPLIED BY LAB FILLED AFTER WASTING 10CC OF BLOOD. PORT FLUSHED PER POLICY AND NON-CORING NEEDLE WITHDRAWN INTACT. BANDAID TO SITE. BLLOD TO LAB VIA TUBE TRANSPORT SYSTEM.
[2019-11-07 09:57] LABS: BASO % 0.6 % (0.0-1.0); EOS # 0.1 10*3/uL (0.0-0.4); HEMATOCRIT 42.1 % (42.0-52.0); HEMOGLOBIN 13.7 g/dl (14.0-18.0); LYMPH # 1.9 10*3/uL (1.3-4.4); LYMPH % 29.3 % (27.0-41.0); MEAN CORPUSCULAR HGB 30.9 pg (27.0-31.0); MEAN CORPUSCULAR HGB CONC 32.5 g/dl (33.0-37.0); MEAN PLATELET VOLUME 10.3 fl (9.6-12.3); MONO # 0.9 10*3/uL (0.1-1.0); MONO % 14.3 % (3.0-9.0); NEUT # 3.4 10*3/uL (2.3-7.9); NEUT % 52.6 % (47.0-73.0); PLATELET COUNT AUTOMATED 233 10*3/uL (130-400); RED BLOOD COUNT 4.43 10*6/uL (4.50-5.90); RED CELL DISTRI WIDTH 12.8 % (0-14.5); WHITE BLOOD COUNT 6.5 10*3/uL (4.8-10.8)
== END | disposition home or self-care (01) ==
LOC: LAB 09:21
PROVIDERS: Nurse Practitioner Family
DX: M79.672 Pain in left foot (principal); M19.079 Primary osteoarthritis, unspecified ankle and foot; R50.9 Fever, unspecified

== ENCOUNTER → 2019-12-26 | Outpatient (CLI) | payer OTHER ==
--- NOTE | 2019-12-26 11:43 | NUR ---
PT here for medipot flush as ordered per policy. Site accessed with noncoring needle prompt blood return noted. Labs sent to main lab. Heparin flush per policy. Needle removed. Dressing applied. Tolerated well. Eugenia Ely Rn
[2019-12-26 12:52] LABS: BASO # 0.1 10*3/uL (0.0-0.1); BASO % 0.9 % (0.0-1.0); EOS # 0.1 10*3/uL (0.0-0.4); EOS % 2.2 % (1.0-4.0); HEMATOCRIT 42.5 % (42.0-52.0); HEMOGLOBIN 13.7 g/dl (14.0-18.0); LYMPH # 1.6 10*3/uL (1.3-4.4); LYMPH % 27.7 % (27.0-41.0); MEAN CELL VOLUME 95.9 fl (80.0-94.0); MEAN CORPUSCULAR HGB 30.9 pg (27.0-31.0); MEAN CORPUSCULAR HGB CONC 32.2 g/dl (33.0-37.0); MEAN PLATELET VOLUME 11.4 fl (9.6-12.3); MONO # 0.6 10*3/uL (0.1-1.0); MONO % 10.4 % (3.0-9.0); NEUT # 3.4 10*3/uL (2.3-7.9); NEUT % 57.9 % (47.0-73.0); PLATELET COUNT AUTOMATED 211 10*3/uL (130-400); RED BLOOD COUNT 4.43 10*6/uL (4.50-5.90); RED CELL DISTRI WIDTH 13.1 % (0-14.5); WHITE BLOOD COUNT 5.9 10*3/uL (4.8-10.8)
[2019-12-26 13:03] LABS: ALBUMIN 3.9 gm/dl (3.1-4.5); ALKALINE PHOSPHATASE 78 U/L (45-117); BUN 19 mg/dl (7-24); CHLORIDE 106 mmol/L (98-107); SGOT/AST 32 IU/L (3-35); SGPT/ALT 40 U/L (12-78); SODIUM 140 mmol/L (136-145); TOTAL PROTEIN 7.1 gm/dL (6.4-8.2)
== END | disposition home or self-care (01) ==
LOC: LAB 10:58
PROVIDERS: Nurse Practitioner Family
DX: R05 Cough (principal); R09.89 Other specified symptoms and signs involving the circulatory and respiratory systems

== ENCOUNTER 2020-06-05 19:38 | Inpatient (IN) | payer OTHER, MEDICAID ==
[~2020-06-05] VITALS: Ht 167.6 cm; Wt 160.8 kg
[~2020-06-05 19:38] MED LIST changes: -ASPIRIN ADULT L81 M2 PO; -CHLORTHALIDONE25 MG PO; -FUROSEMIDE40 MG PO; -NITROSTAT0.4 MG SL; -PANTOPRAZOLE SO40 MG PO; -PAROXETINE HCL20 MG PO; -TAMSULOSIN HCL0.4 MG PO; -VITAMIN D350 MC2 GT; -XARE20MG PO
[2020-06-05 19:46] VITALS: BP 159/87
[2020-06-05 21:05] LABS: BASO # 0.1 10*3/uL (0.0-0.1); BASO % 0.8 % (0.0-1.0); EOS # 0.1 10*3/uL (0.0-0.4); EOS % 2.2 % (1.0-4.0); HEMATOCRIT 40.3 % (42.0-52.0); LYMPH # 1.9 10*3/uL (1.3-4.4); LYMPH % 29.4 % (27.0-41.0); MEAN CELL VOLUME 93.9 fl (80.0-94.0); MEAN CORPUSCULAR HGB 30.3 pg (27.0-31.0); MEAN CORPUSCULAR HGB CONC 32.3 g/dl (33.0-37.0); MEAN PLATELET VOLUME 10.4 fl (9.6-12.3); MONO # 0.8 10*3/uL (0.1-1.0); MONO % 13.1 % (3.0-9.0); NEUT # 3.4 10*3/uL (2.3-7.9); NEUT % 53.4 % (47.0-73.0); PLATELET COUNT AUTOMATED 228 10*3/uL (130-400); RED BLOOD COUNT 4.29 10*6/uL (4.50-5.90); RED CELL DISTRI WIDTH 13.2 % (0-14.5); WHITE BLOOD COUNT 6.3 10*3/uL (4.8-10.8)
[2020-06-05 21:15] LABS: INTERNATIONAL NORM RATIO 0.9 (2.0-3.5)
[2020-06-05 21:21] LABS: ALBUMIN 3.6 gm/dl (3.1-4.5); ALKALINE PHOSPHATASE 80 U/L (45-117); BUN 22 mg/dl (7-24); CHLORIDE 108 mmol/L (98-107); POTASSIUM 4.1 mmol/L (3.5-5.1); SGOT/AST 32 IU/L (3-35); SGPT/ALT 52 U/L (12-78); SODIUM 142 mmol/L (136-145); TOTAL PROTEIN 7.2 gm/dL (6.4-8.2)
[2020-06-06] VITALS: BP 151/84
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
[2020-06-06 00:15] VITALS: BP 145/88
--- NOTE | 2020-06-06 02:30 | NUR ---
CALLED AND SPOKE WITH DR LEMUS UNABLE TO OBTAIN 150 MG LOVENOX THIS EVENING ORDER CHANGED TO PO XARELTO.
[2020-06-06 03:19] LABS: URINE AMPHETAMINES < 1000 (1000ng/ml); URINE BARBITURATES < 200 (200ng/ml); URINE BENZODIAZEPINES < 200 (200ng/ml); URINE CANNABINOIDS (THC) < 50 (50ng/ml); URINE COCAINE < 300 (300ng/ml); URINE METHADONE < 300 (300ng/ml); URINE OPIATES < 300 (300ng/ml)
[2020-06-06 03:20] LABS: URINE PHENCYCLIDINE < 25 (25ng/ml)
--- NOTE | 2020-06-06 04:05 | NUR ---
CALLED [facility] ABOUT CONSULT INFORMATIN TAKEN BY AIXA.
--- NOTE | 2020-06-06 04:33 | NUR ---
PATIENT HAD STATED HE HAD PAPERS SIGNED THAT HE WAS A DNR-ARREST LOOKED BACK THROUGHOUT OUR SYSTEM AND COULD NOT FIND ANY SUCH PAPER. CALLED DR. LEMUS AND NOTIFIED HER OF THIS AND SHE IS AWARE PAPER WORK NEEDS SIGNED.
--- NOTE | 2020-06-06 06:07 | NUR ---
CALLED AND LEFT MESSAGE WITH ANSWERING SERVICE FOR CONSULT WITH DR. Gwen GUERRA.
[2020-06-06 06:18] LABS: ALBUMIN 3.4 gm/dl (3.1-4.5); ALKALINE PHOSPHATASE 73 U/L (45-117); BUN 23 mg/dl (7-24); CHLORIDE 108 mmol/L (98-107); CREATININE 1.09 mg/dL (0.70-1.30); FREE T4 0.94 ng/dl (0.76-1.46); SGOT/AST 30 IU/L (3-35); SGPT/ALT 49 U/L (12-78); SODIUM 142 mmol/L (136-145)
--- NOTE | 2020-06-06 06:19 | NUR ---
CALLED AND ANSWERING SERVICE FOR AND INFORMATION GIVEN. ANSWERING SERVICE PUT DR VIDAL OF THE LINE AND SHE WAS NOTIFIED OF REASON FOR CONSULT AND PAST ATTEMPT OF SUICIDE WHEN PAST AWAY AND CURRENT SITUATIONS. SHE SAID SHE WOULD SEE HIM THIS MORNING.
--- NOTE | 2020-06-06 06:29 | NUR ---
DNR ARREST PAPER SIGNED BY DR. LEMUS.
[2020-06-06 06:45] LABS: BASO % 0.6 % (0.0-1.0); EOS # 0.2 10*3/uL (0.0-0.4); EOS % 2.8 % (1.0-4.0); HEMATOCRIT 39.4 % (42.0-52.0); LYMPH # 1.9 10*3/uL (1.3-4.4); LYMPH % 28.7 % (27.0-41.0); MEAN CELL VOLUME 96.3 fl (80.0-94.0); MEAN CORPUSCULAR HGB 30.6 pg (27.0-31.0); MEAN CORPUSCULAR HGB CONC 31.7 g/dl (33.0-37.0); MONO % 15.3 % (3.0-9.0); NEUT # 3.3 10*3/uL (2.3-7.9); NEUT % 51.2 % (47.0-73.0); PLATELET COUNT AUTOMATED 214 10*3/uL (130-400); RED BLOOD COUNT 4.09 10*6/uL (4.50-5.90); RED CELL DISTRI WIDTH 13.3 % (0-14.5); WHITE BLOOD COUNT 6.5 10*3/uL (4.8-10.8)
--- NOTE | 2020-06-06 06:58 | NUR ---
DR LEMUS WOULD LIKE PHARMACY CALLED TO VERIFY WHAT HOME MEDICATIONS PATIENT SHOULD BE TAKING SINCE PATIENT CAN NOT REMEMBER WHICH MEDICATIONS HE SHOULDE BE ON.
[2020-06-06 08:00] VITALS: BP 131/54
--- NOTE | 2020-06-06 09:30 | NUR ---
Java Jsf Developer in to talk to patient. Patient states lives at home alone. He states he doesn't have any family. There are 7 steps in the home. Physician: [facility]acy: [facility] Home health services: none Patient's level of ADLs: INDEPENDENT Patient has working utilities: yes DME: Follow-up physician's appointment after d/c: will be made by the hospitalist nurse director upon discharge Does patient want to access PORTAL?: no Discharge plan discussed with patient. He is sitting on the edge of his bed. He state he lives at home alone and doesn't have any family. He is going to be in the process of moving apartments because the apartment he is currently in has some issues with the floor and the stove. He asked if there were any assistance in moving his belongings. Explained unfortunately he would need to reach out to someone to pay. He verbalized an understanding. Discussed his depression and whether he would like to be treated inpatient or outpatient. He would like to be treated outpatient. Dr. Casas discussed CAA with him. Discussed home health care services and he declines. CM will continue to follow for any discharge planning needs. When medically stable he will be discharged to home. He states he drove himself here and will be driving himself home. RIANA SANTAMARIA
[2020-06-06] MEDS ORDERED: CHLORTHALIDONE25 MG PO (09:52)
[2020-06-06] MEDS ORDERED: TAMSULOSIN HCL0.4 MG PO (09:54)
[2020-06-06] MEDS ORDERED: PANTOPRAZOLE SO40 MG PO ×2 (09:54→11:07)
[2020-06-06] MEDS ORDERED: PAROXETINE HCL20 MG PO (09:56)
--- NOTE | 2020-06-06 10:06 | NUR ---
NOTIFIED THAT THE MED REC WAS UPDATED TO THE BEST OF OUR ABILITIES. PT IS A POOR HISTORIAN WHEN IT COMES TO HIS MEDS. SAID HE WOULD CHECK IN WITH CARDIOLOGY FOR CARDIAC MEDS THERE WAS NO HISTORY OF HIM FILLING THESE OUTSIDE OF HIS LAST ADMISSION.
--- NOTE | 2020-06-06 10:48 | NUR ---
DAHIANA FROM [facility] OFFICE CALLED FOR PT UPDATE, UPDATE PROVIDED.
[2020-06-06] MEDS ORDERED: XARE20MG PO (11:07)
[2020-06-06] MEDS ORDERED: FUROSEMIDE40 MG PO (11:07)
[2020-06-06] MEDS ORDERED: NITROSTAT0.4 MG SL (11:07)
[2020-06-06] MEDS ORDERED: VITAMIN D350 MC2 GT (11:07)
[2020-06-06] MEDS ORDERED: ATORVASTATIN CA80 M1 PO (11:07)
[2020-06-06] MEDS ORDERED: ASPIRIN ADULT L81 M2 PO (11:07)
[2020-06-06] MEDS ORDERED: LOPRESSOR25 MG PO (11:07)
--- NOTE | 2020-06-06 11:40 | NUR ---
PT ANKIT DEACCESSED AT THIS TIME, DRESSING APPLIED.
--- NOTE | 2020-06-06 12:02 | NUR ---
Discharge instructions reviewed with patient/family. Patient receptive and verbalizes understanding. Follow-up care arranged. Written instructions given to patient/family. Monitor removed. LUIS MOHR
== END 2020-06-06 12:02 | disposition home or self-care (01) | DRG 292 ==
LOC: ED 19:38 → EDHOLD 21:57 → 5E 22:21
PROVIDERS: Emergency Medicine; Internal Medicine; ADMIT Internal Medicine; ATTEND Internal Medicine
DX: I11.0 Hypertensive heart disease with heart failure (principal); I45.2 Bifascicular block; F33.9 Major depressive disorder, recurrent, unspecified; Z68.43 Body mass index [BMI] 50.0-59.9, adult; R07.89 Other chest pain; I50.33 Acute on chronic diastolic (congestive) heart failure; J44.9 Chronic obstructive pulmonary disease, unspecified; I48.0 Paroxysmal atrial fibrillation; K21.9 Gastro-esophageal reflux disease without esophagitis; D64.9 Anemia, unspecified; N40.0 Benign prostatic hyperplasia without lower urinary tract symptoms; F41.9 Anxiety disorder, unspecified; E87.8 Other disorders of electrolyte and fluid balance, not elsewhere classified; I25.10 Atherosclerotic heart disease of native coronary artery without angina pectoris; E78.5 Hyperlipidemia, unspecified; E83.41 Hypermagnesemia; E11.65 Type 2 diabetes mellitus with hyperglycemia; E66.01 Morbid (severe) obesity due to excess calories; Z66 Do not resuscitate; Z51.5 Encounter for palliative care; Z91.14 Patient's other noncompliance with medication regimen; Z88.0 Allergy status to penicillin; Z88.8 Allergy status to other drugs, medicaments and biological substances; Z85.89 Personal history of malignant neoplasm of other organs and systems; Z88.6 Allergy status to analgesic agent; Z91.041 Radiographic dye allergy status; Z83.6 Family history of other diseases of the respiratory system; Z82.49 Family history of ischemic heart disease and other diseases of the circulatory system; Z86.718 Personal history of other venous thrombosis and embolism; I25.2 Old myocardial infarction; Z95.5 Presence of coronary angioplasty implant and graft

== ENCOUNTER → 2020-06-05 | Outpatient (CLI) | payer OTHER, MEDICAID ==
[~2020-06-05] MED LIST changes: +ASPIRIN ADULT L81 M2 PO; +CHLORTHALIDONE25 MG PO; +FUROSEMIDE40 MG PO; +NITROSTAT0.4 MG SL; +PANTOPRAZOLE SO40 MG PO; +PAROXETINE HCL20 MG PO; +TAMSULOSIN HCL0.4 MG PO; +VITAMIN D350 MC2 GT; +XARE20MG PO
== END | disposition home or self-care (01) ==
LOC: RAD 08:54
PROVIDERS: ATTEND Nurse Practitioner Family
DX: M19.071 Primary osteoarthritis, right ankle and foot (principal); I45.10 Unspecified right bundle-branch block; I11.0 Hypertensive heart disease with heart failure; I50.32 Chronic diastolic (congestive) heart failure; F32.9 Major depressive disorder, single episode, unspecified; I48.91 Unspecified atrial fibrillation; N40.0 Benign prostatic hyperplasia without lower urinary tract symptoms; M79.671 Pain in right foot; R60.0 Localized edema; Z23 Encounter for immunization

== ENCOUNTER 2021-05-01 16:43 | Inpatient (IN) | payer OTHER, MEDICAID ==
[~2021-05-01] VITALS: Ht 165.1 cm; Wt 169.3 kg
[~2021-05-01 16:43] MED LIST changes: +ASPIRIN ADULT L81 M2 PO; +CHLORTHALIDONE25 MG PO; +FUROSEMIDE40 MG PO; +NITROSTAT0.4 MG SL; +PANTOPRAZOLE SO40 MG PO; +PAROXETINE HCL20 MG PO; +TAMSULOSIN HCL0.4 MG PO; +VITAMIN D350 MC2 GT; +XARE20MG PO
[2021-05-01 16:52] VITALS: BP 154/85
[2021-05-01 22:40] LABS: BASO % 0.5 % (0.0-1.0); EOS # 0.1 10*3/uL (0.0-0.4); EOS % 1.4 % (1.0-4.0); HEMATOCRIT 39.9 % (42.0-52.0); LYMPH # 1.8 10*3/uL (1.3-4.4); LYMPH % 28.5 % (27.0-41.0); MEAN CELL VOLUME 93.2 fl (80.0-94.0); MEAN CORPUSCULAR HGB 30.6 pg (27.0-31.0); MEAN CORPUSCULAR HGB CONC 32.8 g/dl (33.0-37.0); MONO # 0.9 10*3/uL (0.1-1.0); MONO % 13.3 % (3.0-9.0); NEUT # 3.6 10*3/uL (2.3-7.9); NEUT % 55.5 % (47.0-73.0); PLATELET COUNT AUTOMATED 196 10*3/uL (130-400); RED BLOOD COUNT 4.28 10*6/uL (4.50-5.90); RED CELL DISTRI WIDTH 13.1 % (0-14.5); WHITE BLOOD COUNT 6.5 10*3/uL (4.8-10.8)
[2021-05-01 22:51] VITALS: BP 131/92
[2021-05-01 22:56] LABS: ALBUMIN 3.4 gm/dl (3.1-4.5); ALKALINE PHOSPHATASE 102 U/L (45-117); BUN 16 mg/dl (7-24); CHLORIDE 106 mmol/L (98-107); CREATININE 1.02 mg/dL (0.70-1.30); POTASSIUM 3.5 mmol/L (3.5-5.1); SGOT/AST 32 IU/L (3-35); SGPT/ALT 38 U/L (12-78); SODIUM 137 mmol/L (136-145); TOTAL PROTEIN 7.4 gm/dL (6.4-8.2); URIC ACID 10.7 mg/dL (3.5-7.2)
[2021-05-02 02:30] VITALS: BP 158/92
[2021-05-02] MEDS ORDERED: BUMETANIDE2 MG PO (03:40)
[2021-05-02 06:51] LABS: BASO % 0.4 % (0.0-1.0); HEMATOCRIT 40.6 % (42.0-52.0); LYMPH # 0.6 10*3/uL (1.3-4.4); LYMPH % 11.4 % (27.0-41.0); MEAN CELL VOLUME 93.3 fl (80.0-94.0); MEAN CORPUSCULAR HGB 30.3 pg (27.0-31.0); MEAN CORPUSCULAR HGB CONC 32.5 g/dl (33.0-37.0); MEAN PLATELET VOLUME 10.9 fl (9.6-12.3); MONO # 0.1 10*3/uL (0.1-1.0); MONO % 1.7 % (3.0-9.0); NEUT # 4.6 10*3/uL (2.3-7.9); NEUT % 85.6 % (47.0-73.0); PLATELET COUNT AUTOMATED 249 10*3/uL (130-400); RED BLOOD COUNT 4.35 10*6/uL (4.50-5.90); RED CELL DISTRI WIDTH 12.9 % (0-14.5); WHITE BLOOD COUNT 5.3 10*3/uL (4.8-10.8)
[2021-05-02 07:08] LABS: ALBUMIN 3.2 gm/dl (3.1-4.5); BUN 18 mg/dl (7-24); CHLORIDE 104 mmol/L (98-107); CHOLESTEROL 251 mg/dL (<200); POTASSIUM 4.2 mmol/L (3.5-5.1); SODIUM 135 mmol/L (136-145)
[2021-05-02 07:17] LABS: ALKALINE PHOSPHATASE 98 U/L (45-117); FREE T4 1.02 ng/dl (0.76-1.46); LDL CHOLESTEROL 186 mg/dL (9-159); SGOT/AST 29 IU/L (3-35); SGPT/ALT 37 U/L (12-78); TOTAL PROTEIN 7.6 gm/dL (6.4-8.2); TRIGLYCERIDES 91 mg/dl (<150); URIC ACID 10.4 mg/dL (3.5-7.2)
[2021-05-02 07:44] LABS: VITAMIN D, 25-HYDROXY 26.4 ng/mL (30-100)
[2021-05-02 08:02] VITALS: BP 165/81
[2021-05-02 11:07] VITALS: BP 168/87
[2021-05-02] MEDS ORDERED: PREDNISONE50 MG PO (12:31)
[2021-05-02] MEDS ORDERED: PERCOCET 5-3251 EACH PO (12:32)
[2021-05-02] MEDS ORDERED: NYSTATIN1 EAC3 MC (12:48)
== END 2021-05-02 13:40 | disposition home or self-care (01) | DRG 872 ==
LOC: ED 16:43 → 5E 23:31 → EDHOLD 23:31 → 5E 05-02 01:16
PROVIDERS: Emergency Medicine; Hospitalist; ADMIT Student in an Organized Health Care Education/Training Program; ATTEND Student in an Organized Health Care Education/Training Program
DX: A41.9 Sepsis, unspecified organism (principal); L03.116 Cellulitis of left lower limb; F33.9 Major depressive disorder, recurrent, unspecified; Z68.44 Body mass index [BMI] 60.0-69.9, adult; F41.9 Anxiety disorder, unspecified; N40.0 Benign prostatic hyperplasia without lower urinary tract symptoms; J44.9 Chronic obstructive pulmonary disease, unspecified; I25.10 Atherosclerotic heart disease of native coronary artery without angina pectoris; E11.9 Type 2 diabetes mellitus without complications; I48.0 Paroxysmal atrial fibrillation; E66.9 Obesity, unspecified; M10.072 Idiopathic gout, left ankle and foot; E78.2 Mixed hyperlipidemia; D64.9 Anemia, unspecified; E55.9 Vitamin D deficiency, unspecified; Z88.0 Allergy status to penicillin; Z88.8 Allergy status to other drugs, medicaments and biological substances; Z88.6 Allergy status to analgesic agent; Z91.041 Radiographic dye allergy status; Z95.5 Presence of coronary angioplasty implant and graft; Z83.6 Family history of other diseases of the respiratory system; Z82.49 Family history of ischemic heart disease and other diseases of the circulatory system; I25.2 Old myocardial infarction

== ENCOUNTER 2021-05-03 14:30 | Emergency (ER) | payer OTHER, MEDICAID ==
[~2021-05-03] VITALS: Ht 167.6 cm; Wt 168.3 kg
[~2021-05-03 14:30] MED LIST changes: +BUMETANIDE2 MG PO; +NYSTATIN1 EAC3 MC; +PERCOCET 5-3251 EACH PO; +PREDNISONE50 MG PO
== END 2021-05-03 16:18 | disposition short-term general hospital (02) ==
LOC: ED 14:30
DX: R78.81 Bacteremia (principal); F41.9 Anxiety disorder, unspecified; J44.9 Chronic obstructive pulmonary disease, unspecified; I25.10 Atherosclerotic heart disease of native coronary artery without angina pectoris; F32.9 Major depressive disorder, single episode, unspecified; E11.9 Type 2 diabetes mellitus without complications; K21.9 Gastro-esophageal reflux disease without esophagitis; I10 Essential (primary) hypertension; I25.2 Old myocardial infarction; E78.5 Hyperlipidemia, unspecified; E66.9 Obesity, unspecified; I48.0 Paroxysmal atrial fibrillation; Z85.46 Personal history of malignant neoplasm of prostate; Z88.1 Allergy status to other antibiotic agents; Z88.0 Allergy status to penicillin; Z88.6 Allergy status to analgesic agent; Z88.4 Allergy status to anesthetic agent; Z79.899 Other long term (current) drug therapy; Z98.890 Other specified postprocedural states; Z95.5 Presence of coronary angioplasty implant and graft; Z87.891 Personal history of nicotine dependence

== ENCOUNTER → 2023-10-28 | Day surgery (SDC) | payer OTHER, MEDICAID ==
[2023-10-25 11:56] VITALS: BP 165/78
[2023-10-25 13:18] LABS: BUN 22 mg/dl (9-23); CHLORIDE 105 mmol/L (98-107); POTASSIUM 4.3 mmol/L (3.4-5.1)
[~2023-10-28] VITALS: Ht 167.6 cm; Wt 163.7 kg
[~2023-10-28] MED LIST changes: +ADULT ASPIRIN R81 MG PO; +ALLOPURINOL300 MG PO; +DIGOXIN125 MCG PO; +ELIQUIS5 M1 PO; +IMDUR SA30 MG PO; +METOPROLOL TART75 MG PO
[2023-10-28 07:46] VITALS: BP 114/54
[2023-10-28 09:17] VITALS: BP 103/62
[2023-10-28 09:32] VITALS: BP 99/52
[2023-10-28 09:47] VITALS: BP 99/54
[2023-10-28 10:02] VITALS: BP 107/41
[2023-10-28 10:17] VITALS: BP 103/55
== END | disposition home or self-care (01) ==
LOC: SDC 10-25 08:45
PROVIDERS: ATTEND Orthopaedic Surgery
DX: G56.03 Carpal tunnel syndrome, bilateral upper limbs (principal); F32.A Depression, unspecified; I25.10 Atherosclerotic heart disease of native coronary artery without angina pectoris; J44.9 Chronic obstructive pulmonary disease, unspecified; F41.9 Anxiety disorder, unspecified; I11.0 Hypertensive heart disease with heart failure; I50.9 Heart failure, unspecified; I48.91 Unspecified atrial fibrillation; Z95.5 Presence of coronary angioplasty implant and graft; Z87.891 Personal history of nicotine dependence; I25.2 Old myocardial infarction; Z79.899 Other long term (current) drug therapy

== ENCOUNTER → 2024-11-08 | Outpatient (CLI) | payer OTHER, MEDICAID | END | disposition home or self-care (01) | LOC: ORTHO 00:51 | PROVIDERS: ATTEND Orthopaedic Surgery | DX: M19.042 Primary osteoarthritis, left hand (principal); M85.3 Osteitis condensans ==

== ENCOUNTER → 2024-11-24 | Outpatient (CLI) | payer OTHER, MEDICAID ==
[~2024-11-24] MED LIST changes: +HEPARIN SODIUM 500 UNIT/5 ML SYR IV ONE; +HEPARIN SODIUM 500 UNIT/5 ML SYR IV SCH; +SODIUM CHLORIDE 0.9% 10 ML SYR IV PRN
[2024-11-24 13:46] LABS: BASO % 0.6 % (0.0-1.0); EOS # 0.1 10*3/uL (0.0-0.4); EOS % 1.4 % (1.0-4.0); HEMATOCRIT 42.8 % (42.0-52.0); MEAN CELL VOLUME 93.7 fl (80.0-94.0); MEAN CORPUSCULAR HGB 31.3 pg (27.0-31.0); MEAN CORPUSCULAR HGB CONC 33.4 g/dl (33.0-37.0); MEAN PLATELET VOLUME 10.4 fl (9.6-12.3); MONO # 0.9 10*3/uL (0.1-1.0); MONO % 13.7 % (3.0-9.0); NEUT % 62.5 % (47.0-73.0); PLATELET COUNT AUTOMATED 202 10*3/uL (130-400); RED BLOOD COUNT 4.57 10*6/uL (4.50-5.90); RED CELL DISTRI WIDTH 14.1 % (0-14.5); WHITE BLOOD COUNT 6.3 10*3/uL (4.8-10.8)
[2024-11-24 14:15] LABS: ALKALINE PHOSPHATASE 96 U/L (46-116); BUN 26 mg/dl (9-23); CHLORIDE 103 mmol/L (98-107); CHOLESTEROL 172 mg/dL (<200); LDL CHOLESTEROL 107 mg/dL (9-159); POTASSIUM 4.2 mmol/L (3.4-5.1); SGPT/ALT 15 U/L (5-49); THYROXINE (T4) TOTAL 9.5 ug/dl (4.5-10.9); TOTAL PROTEIN 6.7 gm/dL (6.0-8.0); TRIGLYCERIDES 120 mg/dl (<150)
[2024-11-28 16:07] LABS: FREE PSA 0.029 ng/mL (.)
== END | disposition home or self-care (01) ==
LOC: LAB 12:29
PROVIDERS: ATTEND Nurse Practitioner Family
DX: Z12.5 Encounter for screening for malignant neoplasm of prostate (principal); Z11.59 Encounter for screening for other viral diseases; Z11.4 Encounter for screening for human immunodeficiency virus [HIV]; I10 Essential (primary) hypertension; E11.9 Type 2 diabetes mellitus without complications; E66.9 Obesity, unspecified; E78.5 Hyperlipidemia, unspecified; Z68.43 Body mass index [BMI] 50.0-59.9, adult; Z79.899 Other long term (current) drug therapy

== ENCOUNTER → 2024-11-28 | Day surgery (SDC) | payer OTHER, MEDICAID ==
[~2024-11-28] VITALS: Ht 167.6 cm; Wt 158.8 kg
[~2024-11-28] MED LIST changes: +ACETAMINOPHEN 100 ML IV ONE; +Clindamycin Phosphate 50 ML IV ONE; -HEPARIN SODIUM 500 UNIT/5 ML SYR IV ONE; +Lactated Ringer's Solution 1,000 ML IV ONE; +PROPOFOL 200 MG/20 ML VIAL IV ONE
[2024-11-28 06:20] VITALS: BP 158/81
[2024-11-28 08:02] VITALS: BP 138/61
[2024-11-28 08:17] VITALS: BP 127/51
[2024-11-28 08:32] VITALS: BP 132/67
== END | disposition home or self-care (01) ==
LOC: SDC 11-24 11:00
PROVIDERS: ATTEND Orthopaedic Surgery
DX: M65.342 Trigger finger, left ring finger (principal); I11.0 Hypertensive heart disease with heart failure; I50.9 Heart failure, unspecified; J44.9 Chronic obstructive pulmonary disease, unspecified; E78.00 Pure hypercholesterolemia, unspecified; I25.10 Atherosclerotic heart disease of native coronary artery without angina pectoris; F41.9 Anxiety disorder, unspecified; K21.9 Gastro-esophageal reflux disease without esophagitis; I48.0 Paroxysmal atrial fibrillation; I25.2 Old myocardial infarction; F32.A Depression, unspecified; Z87.891 Personal history of nicotine dependence; Z95.818 Presence of other cardiac implants and grafts; Z90.89 Acquired absence of other organs; Z98.890 Other specified postprocedural states; Z79.82 Long term (current) use of aspirin; Z79.899 Other long term (current) drug therapy; Z88.0 Allergy status to penicillin; Z88.1 Allergy status to other antibiotic agents; Z88.5 Allergy status to narcotic agent; Z88.8 Allergy status to other drugs, medicaments and biological substances; Z82.49 Family history of ischemic heart disease and other diseases of the circulatory system